=== PATIENT | female | born 1985 | race Caucasian/White ===

== ENCOUNTER 2022-10-12 15:47 | Emergency (ER) | payer MEDICAID ==
[~2022-10-12] VITALS: Ht 157.5 cm; Wt 81.6 kg
[2022-10-12 15:53] VITALS: BP 138/76
--- NOTE | 2022-10-12 15:58 | NUR ---
PT AMBULATED TO BED 12
[2022-10-12] MEDS ORDERED: FAMOTIDINE 20 MG TAB PO ONE (16:20)
[2022-10-12] MEDS ORDERED: predniSONE 20 MG TAB PO ONE (16:20)
[2022-10-12] MEDS ORDERED: diphenhydrAMINE 50 MG CAP PO ONE (16:20)
[2022-10-12 16:50] VITALS: BP 200/120
[2022-10-12] MEDS ORDERED: EPIN1KIT31 IM (16:50)
[2022-10-12] MEDS ORDERED: PRED20TA5 PO (16:50)
[2022-10-12] MEDS ORDERED: DIPH25TA53 PO (16:50)
[2022-10-12] MEDS ORDERED: HYDR28CR38 TP (16:50)
== END 2022-10-12 15:58 | disposition home or self-care (01) ==
LOC: MED 15:47
DX: R21 Rash and other nonspecific skin eruption (principal); R03.0 Elevated blood-pressure reading, without diagnosis of hypertension; Z79.899 Other long term (current) drug therapy
CPT/HCPCS: 99284; J7512; Q0163